=== PATIENT | male | born 1965 | race Two or more races ===

== ENCOUNTER 2021-03-04 16:37 | Emergency (ER) | payer MEDICAID, MEDICARE ==
[~2021-03-04] VITALS: Ht 180.3 cm; Wt 95.0 kg
[2021-03-04] MEDS ORDERED: ACETAMINOPHEN 325 MG TABLET PO ONE (18:00)
--- NOTE | 2021-03-04 18:05 | PHYS DOC ---
Past History Past Surgical History: No Surgical History (WARREN ROSE APRN) General Adult EDM: Chief Complaint: COUGH HPI: HPI: Patient is a 55-year-old male who presents to the emergency department for multiple complaints. Upon entering patient's room patient states "I am sick can I get admitted". "I think I have Covid". Patient is reporting generalized weakness, headache, generalized fatigue, fevers, shortness of breath, midsternal chest pain. Patient reports that his chest pain started this morning. Does not radiate. Patient reports that his other symptoms started 2 hours prior to arrival. Patient is homeless. Patient denies any coughing, vomiting, sick exposures, medical history. Patient's vital signs are stable and he is in no acute distress. (WARREN ROSE APRN) Review of Systems: Review of Systems: 14 body systems of the review of systems have been reviewed. See HPI for pertinent positive and negative responses, otherwise all other systems are negative, nonpertinent or noncontributory (WARREN ROSE APRN) Current Medications: Current Meds: Current Medications Medications (Trade) Dose Ordered Sig/Crow Start Time Stop Time Status Last Admin Dose Admin Acetaminophen (Tylenol) 650 mg 1X ONCE 03/04/21 18:00 03/04/21 18:01 UNV (WARREN ROSE APRN) Allergies: Allergies: Allergies Coded Allergies Type Severity Reaction Last Updated Verified No Known Drug Allergies 03/04/21 No (WARREN ROSE APRN) Physical Exam: PE: Constitutional: Well developed, well nourished, no acute distress, non-toxic appearance. [] HENT: Normocephalic, atraumatic, bilateral external ears normal, oropharynx moist, no oral exudates, nose normal. [] Eyes: PERRL, EOMI, conjunctiva normal, no discharge. [] Neck: Normal range of motion, no stridor Cardiovascular:Heart rate regular rhythm, no murmur [] Lungs & Thorax: Bilateral breath sounds clear to auscultation [] Abdomen: Bowel sounds normal, soft, no tenderness, no masses, no pulsatile masses. [] Skin: Warm, dry, no erythema, no rash. [] Back: Normal range of motion Extremities: No tenderness, no cyanosis, no clubbing, ROM intact, no edema. [] Neurologic: Alert and oriented X 3, normal motor function, normal sensory function, no focal deficits noted. [] Psychologic: Affect normal, judgement normal, mood normal. [] (WARREN ROSE APRN) Current Patient Data: Labs: Laboratory Tests Test 03/04/21 18:36 03/04/21 18:46 White Blood Count 10.9 x10^3/uL Red Blood Count 5.44 x10^6/uL Hemoglobin 15.7 g/dL Hematocrit 45.9 % Mean Corpuscular Volume 84 fL Mean Corpuscular Hemoglobin 29 pg Mean Corpuscular Hemoglobin Concent 34 g/dL Red Cell Distribution Width 14.5 % Platelet Count 194 x10^3/uL Neutrophils (%) (Auto) 91 % Lymphocytes (%) (Auto) 4 % Monocytes (%) (Auto) 3 % Eosinophils (%) (Auto) 2 % Basophils (%) (Auto) 0 % Neutrophils # (Auto) 9.9 x10^3uL Lymphocytes # (Auto) 0.5 x10^3/uL Monocytes # (Auto) 0.3 x10^3/uL Eosinophils # (Auto) 0.2 x10^3/uL Basophils # (Auto) 0.0 x10^3/uL Sodium Level 135 mmol/L Potassium Level 3.8 mmol/L Chloride Level 97 mmol/L Carbon Dioxide Level 29 mmol/L Anion Gap 9 Blood Urea Nitrogen 16 mg/dL Creatinine 1.0 mg/dL Estimated GFR (Cockcroft-Gault) 77.0 BUN/Creatinine Ratio 16 Glucose Level 105 mg/dL Calcium Level 9.0 mg/dL Total Bilirubin 0.5 mg/dL Aspartate Amino Transf (AST/SGOT) 29 U/L Alanine Aminotransferase (ALT/SGPT) 35 U/L Alkaline Phosphatase 102 U/L Troponin I High Sensitivity 6 ng/L Total Protein 7.9 g/dL Albumin 4.3 g/dL Albumin/Globulin Ratio 1.2 Influenza Type A (Rapid) Negative Influenza Type B (Rapid) Negative Current Medications Medications (Trade) Dose Ordered Sig/Crow Route PRN Reason Start Time Stop Time Status Last Admin Dose Admin Acetaminophen (Tylenol) 650 mg 1X ONCE PO 03/04/21 18:00 03/04/21 18:05 DC 03/04/21 18:44 Vital Signs: Vital Signs Date Time Temp Pulse Resp B/P (MAP) Pulse Ox O2 Delivery O2 Flow Rate FiO2 03/04/21 17:43 99.1 108 20 174/64 (100) 97 Room Air (WARREN ROSE APRN) EKG: EKG: [] EKG performed by ER staff at 1803 shows sinus tachycardia with a rate of 101, QTc of 4 5, no STEMI read by Dr. Verde at 1805 (WARREN ROSE APRN) Radiology/Procedures: Radiology/Procedures: []PROCEDURE: PORTABLE CHEST 1V EXAMINATION: XR CHEST 1V CLINICAL HISTORY: HEST PAIN- RIGHT SIDED CHEST TIGHTNESS, WHEEZING, BODY ACHES. ALSO HARD TO SWALLOW AND IS TRYING TO CLEAR HIS THROAT EXAM DATE/TIME: 03/04/2021 6:02 PM COMPARISON: None FINDINGS: Lines, Tubes, and Devices: None. Cardiomediastinal Silhouette: Within normal limits. Lungs and Pleura: Pulmonary hypoexpansion without evidence of focal airspace consolidation or pleural effusion. Pulmonary vasculature unremarkable. Bones and Soft Tissues: No acute osseous abnormality. IMPRESSION: No evidence of acute cardiopulmonary abnormality. Electronically signed by: Amilcar Howard DO (03/04/2021 6:45 PM) [place] DICTATED AND SIGNED BY: AMILCAR HOWARD DO DATE: 03/04/21 1844 CC: WARREN ROSE APRN; PCP,NO ~MTH0 0 (WARREN ROSE APRN) Heart Score: C/O Chest Pain: Yes HEART Score for Chest Pain: HEART Score for Chest Pain Response (Comments) Value History Slighlty/Non-Suspicious 0 ECG Normal 0 Age >45 - < 65 1 Risk Factors No Risk Factors 0 Troponin < Normal Limit 0 Total 1 Risk Factors: Risk Factors: DM, Current or recent (<one month) smoker, HTN, HLP, family history of CAD, obesity. Risk Scores: Score 0 - 3: 2.5% MACE over next 6 weeks - Discharge Home Score 4 - 6: 20.3% MACE over next 6 weeks - Admit for Clinical Observation Score 7 - 10: 72.7% MACE over next 6 weeks - Early Invasive Strategies (WARREN ROSE APRN) Course & Med Decision Making: Course & Med Decision Making Pertinent Labs and Imaging studies reviewed. (See chart for details) [] Patient presents to the emergency department today for multiple complaints including generalized weakness, fatigue, headache, fevers, shortness of breath and chest pain. Patient reports that he believes he has Covid. No Covid exposures. Work-up in the ER consisted of blood work, EKG, chest x-ray. Patient's vital signs are stable and he is in no acute distress. Chest pain started this morning. His heart score is 1 due to his age. His heart rate has improved and is in within normal limits. His chest x-ray is negative for any acute findings. CBC and CMP are also unremarkable. Patients vital signs are stable, he is in no acute distress and not requiring any oxygen. Patients Covid19 test is pending and he will be notified of those results when they are available, he is advised to self isolate until he receives those results. I discussed with patient all findings and diagnostic testing as well as the need to follow-up with PCP for further evaluation and treatment or return to the ER if any new or worsening symptoms. Strict return precautions were also discussed at length. Patient voiced understanding and agreement with the plan. Patient is hemodynamically stable at the time of disposition. (WARREN ROSE APRN) Dragon Disclaimer: Dragon Disclaimer: This electronic medical record was generated, in whole or in part, using a voice recognition dictation system. (WARREN ROSE APRN) Attending Co-Sign The patient was seen and interviewed as well as examined at the bedside. The chart was reviewed. The case was discussed. Agree with the plan of care. (JIL VERDE DO) Departure Departure: Impression: Primary Impression: Person under investigation for COVID-19 Disposition: HOME / SELF CARE / HOMELESS Condition: GOOD Referrals: PCP,NO (PCP) Patient Instructions: Viral Infections Additional Instructions: You were seen in the emergency department for multiple complaints including weak ness, fatigue, fever, shortness of breath. Your work-up in the ER was unremarkable. Your chest x-ray did not show pneumonia. Your influenza test was negative. You are tested in the emergency department for COVID-19. You will be notified via telephone of those results may become available in approximately 2 days. Please self isolate until you receive these results. Increase your fluids and rest. You can take Tylenol and/or ibuprofen for your pain or fevers. Follow-up with your primary care provider or clinic tomorrow regarding your ER visit. Return to the emergency department if you develop worsening of your symptoms, severe chest pain, shortness of breath, high fevers refractory to treatment, intractable nausea or vomiting. WARREN ROSE APRN Mar 04, 2021 18:05 JIL VERDE DO Mar 04, 2021 23:26
--- NOTE | 2021-03-04 18:10 | EKG ---
[address] [address] Test Date: 2021-03-04 Test Time: 18:03:27 Pat Name: IOANA CHAVEZ Department: Room: Gender: M Foreclosure Field Inspector: MARYCHUY : 1965 Requested By: WARREN ROSE Order Number: [id number] Reading MD: Measurements Intervals [place] Rate: 101 P: 29 NE: 160 QRS: 45 QRSD: 82 T: 19 QT: 308 QTc: 405 Interpretive Statements SINUS TACHYCARDIA OTHERWISE NORMAL ECG RI6.02 No previous ECG available for comparison
[2021-03-04 18:32] VITALS: BP 142/89
--- NOTE | 2021-03-04 18:47 | RAD ---
EXAMINATION: XR CHEST 1V CLINICAL HISTORY: HEST PAIN- RIGHT SIDED CHEST TIGHTNESS, WHEEZING, BODY ACHES. ALSO HARD TO SWALLOW AND IS TRYING TO CLEAR HIS THROAT EXAM DATE/TIME: 03/04/2021 6:02 PM COMPARISON: None FINDINGS: Lines, Tubes, and Devices: None. Cardiomediastinal Silhouette: Within normal limits. Lungs and Pleura: Pulmonary hypoexpansion without evidence of focal airspace consolidation or pleural effusion. Pulmonary vasculature unremarkable. Bones and Soft Tissues: No acute osseous abnormality. IMPRESSION: No evidence of acute cardiopulmonary abnormality. Electronically signed by: Amilcar Daniel DO (03/04/2021 6:45 PM) [facility]
[2021-03-04 19:10] LABS: BASO % 0 % (0-3); EOS # 0.2 x10^3/uL (0.0-0.7); EOS % 2 % (0-3); HEMATOCRIT 45.9 % (39.0-53.0); HEMOGLOBIN 15.7 g/dL (13.0-17.5); LYMPH # 0.5 x10^3/uL (1.0-4.8); LYMPH % 4 % (24-48); MEAN CORPUSCULAR HEMOGLOBIN 29 pg (25-35); MEAN CORPUSCULAR HGB CONC 34 g/dL (31-37); MEAN CORPUSCULAR VOLUME 84 fL (79-100); MONO # 0.3 x10^3/uL (0.0-1.1); MONO % 3 % (0-9); NEUT # 9.9 x10^3uL (1.8-7.7); NEUT % 91 % (31-73); PLATELET COUNT 194 x10^3/uL (140-400); RED BLOOD COUNT 5.44 x10^6/uL (4.30-5.70); RED CELL DISTRIBUTION WIDTH 14.5 % (11.5-14.5); WHITE BLOOD COUNT 10.9 x10^3/uL (4.0-11.0)
[2021-03-04 19:19] LABS: POTASSIUM 3.8 mmol/L (3.5-5.1)
[2021-03-04 19:26] LABS: ALBUMIN 4.3 g/dL (3.4-5.0); ALBUMIN/GLOBULIN RATIO 1.2 (1.0-1.7); TOTAL BILIRUBIN 0.5 mg/dL (0.2-1.0); TOTAL PROTEIN 7.9 g/dL (6.4-8.2)
[2021-03-04 19:41] LABS: INFLUENZA A PATIENT NEGATIVE (NEGATIVE); INFLUENZA B PATIENT NEGATIVE (NEGATIVE)
== END 2021-03-04 20:10 | disposition home or self-care (01) ==
LOC: ER 16:37
DX: R53.1 Weakness (principal); R51.9 Headache, unspecified; R06.02 Shortness of breath; R07.2 Precordial pain; Z20.822 Contact with and (suspected) exposure to COVID-19
CPT/HCPCS: 71045; 80053; 84484; 85025; 87804; 93005; 99285; C9803; U0003